=== PATIENT | female | born 1945 | race Caucasian/White ===

== ENCOUNTER 2020-08-14 13:08 | Inpatient (IN) | payer OTHER, SELFPAY ==
[~2020-08-14] VITALS: Ht 152.4 cm; Wt 70.8 kg
[2020-08-14 13:18] VITALS: BP_SYST 104
[2020-08-14] MEDS ORDERED: ONDANSETRON HCL 4 MG/2 ML VIAL IVP ONE (14:15)
[2020-08-14] MEDS ORDERED: NACL 0.9% 1,000 ML IV ONE (14:15)
[2020-08-14 14:28] LABS: BASOPHILS % (AUTO) 0.3 % (0.0-2.0); EOSINOPHILS % (AUTO) 0.1 % (0.0-4.0); HEMATOCRIT 49.9 % (36-48); HEMOGLOBIN 16.6 g/dL (12.0-16.0); LYMPHOCYTES # (AUTO) 1.3 K/uL (1.0-5.5); LYMPHOCYTES % (AUTO) 12.5 % (20.5-51.5); MEAN CORPUSCULAR HEMOGLOBIN 28 pg (27-31); MEAN CORPUSCULAR HGB CONC 33 % (32-36); MEAN CORPUSCULAR VOLUME 84 fL (79.0-98.0); MONOCYTES # (AUTO) 0.8 K/uL (0.0-1.0); MONOCYTES % (AUTO) 7.1 % (1.7-9.3); NEUTROPHILS # (AUTO) 8.6 K/uL (1.8-7.7); PLATELET COUNT (AUTO) 317 K/uL (130-430); RED BLOOD CELL COUNT(AUTO) 5.94 MIL/uL (4.2-6.2); RED CELL DISTRIBUTION WIDTH 18.1 % (9.0-15.0); WHITE BLOOD COUNT (AUTO) 10.8 K/uL (4.8-10.8)
[2020-08-14 14:49] LABS: ANION GAP 15 (5-15); CALCIUM 9.2 mg/dL (8.4-11.0); CHLORIDE 101 mmol/L (98-107); CREATININE 1.21 mg/dL (0.55-1.30); GLUCOSE 155 mg/dL (70-99); INR 1.2 (0.8-1.2); PROTHROMBIN TIME 12.2 SECS (9.5-12.5); SODIUM SERUM 135 mmol/L (136-145); UREA NITROGEN, BLOOD 21 mg/dL (8-21)
[2020-08-14 14:52] LABS: POTASSIUM 2.7 mmol/L (3.5-5.1)
[2020-08-14 14:57] LABS: ALANINE AMINOTRANSFERASE 15 U/L (12-78); ALBUMIN 1.9 g/dL (3.4-4.8); ASPARTATE AMINOTRANSFERASE 15 U/L (10-37); LACTATE DEHYDROGENASE 137 U/L (81-234); LIPASE 50 U/L (73-393); TOTAL BILIRUBIN 0.6 mg/dL (0.0-1.0)
[2020-08-14 15:25] LABS: C-REACTIVE PROTEIN QUANT 26.7 mg/dL (0-0.5)
[2020-08-14] MEDS ORDERED: KCL 40 mEq in 100 mL (PREMIX) 100 ML IV ONE (15:30)
[2020-08-14] MEDS ORDERED: ONDANSETRON HCL 4 MG/2 ML VIAL IVP PRN (15:45)
[2020-08-14] MEDS ORDERED: ACETAMINOPHEN 325 MG TABLET PO PRN (15:45)
[2020-08-14] MEDS ORDERED: METOCLOPRAMIDE HCL 10 MG/2 ML VIAL IVP PRN (15:45)
[2020-08-14] MEDS ORDERED: MORPHINE 4 MG INJ. 4 MG/ML VIAL IVP PRN (15:45)
[2020-08-14] MEDS ORDERED: ONDA4TAB5 PO (15:55)
[2020-08-14] MEDS ORDERED: METO25TA3 PO (15:55)
[2020-08-14] MEDS ORDERED: GLIM1TAB PO (15:55)
[2020-08-14] MEDS ORDERED: LIP40 PO (15:55)
[2020-08-14] MEDS ORDERED: SEMA1PEN3 SQ (15:55)
[2020-08-14] MEDS: NACL 0.9% 1,000 ML IV SCH (16:34)
[2020-08-14 17:33] VITALS: BP_SYST 123
[2020-08-14 17:41] LABS: BILIRUBIN,URINE 2+ (NEGATIVE); BLOOD, URINE NEGATIVE (NEGATIVE); COLOR,URINE YELLOW (YELLOW); GLUCOSE,URINE NEGATIVE (NEGATIVE); KETONES,URINE 1+ (NEGATIVE); LEUKOCYTE ESTERASE ,URINE NEGATIVE (NEGATIVE); NITRITE, URINE NEGATIVE (NEGATIVE); PH,URINE 6.5 (5.0-8.0); PROTEIN URINE 1+ (NEGATIVE); UROBILINOGEN,URINE 0.2 (0.2-1.0)
[2020-08-14 17:51] LABS: CLARITY/URINE SLIGHTLY HAZY (CLEAR)
[2020-08-14 18:18] LABS: RBC,URINE NONE SEEN /HPF (0-3); WBC,URINE 0-3 /HPF (0-3)
[2020-08-14 18:19] LABS: BACTERIA,URINE FEW /HPF (None Seen); CALCIUM OXALATE CRYSTALS,UR 0-10 /HPF (None Seen); FINE GRANULAR CASTS,URINE 0-10 /LPF (None Seen); MUCUS,URINE None Seen /LPF (None Seen)
[2020-08-14 20:00] VITALS: BP_SYST 122
[2020-08-14 20:46] LABS: ANION GAP 11 (5-15); CALCIUM 8.1 mg/dL (8.4-11.0); CHLORIDE 107 mmol/L (98-107); CREATININE 0.93 mg/dL (0.55-1.30); GLUCOSE 124 mg/dL (70-99); SODIUM SERUM 138 mmol/L (136-145); UREA NITROGEN, BLOOD 18 mg/dL (8-21)
[2020-08-14 20:59] LABS: POTASSIUM 2.8 mmol/L (3.5-5.1)
[2020-08-14 21:02] LABS: THYROID STIMULATING HORMONE 2.08 uIu/mL (0.34-4.82)
[2020-08-14] MEDS ORDERED: POTASSIUM CHLORIDE 20 MEQ TAB.PRT.SR PO ONE (21:15)
[2020-08-15 00:39] VITALS: BP_SYST 115
[2020-08-15] MEDS: NACL 0.9% 1,000 ML IV SCH ×3 (01:45→20:16)
[2020-08-15 03:13] LABS: BASOPHILS # (AUTO) 0.1 K/uL (0.0-0.2); BASOPHILS % (AUTO) 0.5 % (0.0-2.0); EOSINOPHILS % (AUTO) 0.2 % (0.0-4.0); HEMATOCRIT 43.5 % (36-48); HEMOGLOBIN 14.3 g/dL (12.0-16.0); LYMPHOCYTES # (AUTO) 0.9 K/uL (1.0-5.5); LYMPHOCYTES % (AUTO) 7.9 % (20.5-51.5); MEAN CORPUSCULAR HEMOGLOBIN 28 pg (27-31); MEAN CORPUSCULAR HGB CONC 33 % (32-36); MEAN CORPUSCULAR VOLUME 84 fL (79.0-98.0); MONOCYTES # (AUTO) 0.9 K/uL (0.0-1.0); MONOCYTES % (AUTO) 7.7 % (1.7-9.3); NEUTROPHILS # (AUTO) 9.5 K/uL (1.8-7.7); NEUTROPHILS % (AUTO) 83.7 % (40.0-70.0); PLATELET COUNT (AUTO) 284 K/uL (130-430); RED BLOOD CELL COUNT(AUTO) 5.16 MIL/uL (4.2-6.2); RED CELL DISTRIBUTION WIDTH 18.1 % (9.0-15.0); WHITE BLOOD COUNT (AUTO) 11.4 K/uL (4.8-10.8)
[2020-08-15 03:33] LABS: SODIUM SERUM 138 mmol/L (136-145)
[2020-08-15 03:35] LABS: POTASSIUM 2.9 mmol/L (3.5-5.1)
[2020-08-15 03:36] LABS: ANION GAP 8 (5-15); CALCIUM 7.8 mg/dL (8.4-11.0); CHLORIDE 107 mmol/L (98-107); GLUCOSE 124 mg/dL (70-99)
[2020-08-15 03:37] LABS: ALANINE AMINOTRANSFERASE 13 U/L (12-78); ALBUMIN 1.5 g/dL (3.4-4.8); ASPARTATE AMINOTRANSFERASE 13 U/L (10-37); CREATININE 0.91 mg/dL (0.55-1.30); TOTAL BILIRUBIN 0.6 mg/dL (0.0-1.0); UREA NITROGEN, BLOOD 17 mg/dL (8-21)
[2020-08-15] MEDS ORDERED: POTASSIUM CHLORIDE 20 MEQ TAB.PRT.SR PO ONE ×2 (04:30→08:45)
[2020-08-15] MEDS ORDERED: POTASSIUM CHLORIDE 20 MEQ TAB.PRT.SR ONE (05:35)
[2020-08-15 08:00] VITALS: BP_SYST 118
[2020-08-15] MEDS ORDERED: POTASSIUM CHLORIDE 60 MEQ in NS 500 ML IV SCH (08:45)
[2020-08-15] MEDS ORDERED: POTASSIUM CHLORIDE IV ONE (10:15)
[2020-08-15] MEDS ORDERED: DICYCLOMINE HCL 10 MG CAPSULE PO ONE (10:15)
[2020-08-15] MEDS ORDERED: LIDOCAINE JECT IV ONE (10:15)
[2020-08-15] MEDS ORDERED: NACL 0.9% IV ONE (10:15)
[2020-08-15 11:39] VITALS: BP_SYST 124
[2020-08-15 12:00] VITALS: BP_SYST 119
[2020-08-15] MEDS: MORPHINE 2 MG/ML INJ. SYRINGE IVP PRN ×2 (13:15→23:01)
[2020-08-15 16:00] VITALS: BP_SYST 113
[2020-08-15 20:00] VITALS: BP_SYST 124
[2020-08-15] MEDS: DICYCLOMINE HCL 10 MG CAPSULE PO SCH (20:11)
[2020-08-16 00:55] VITALS: BP_SYST 132
[2020-08-16] MEDS ORDERED: LOPERAMIDE HCL 2 MG CAPSULE ONE (09:10)
[2020-08-16] MEDS: DICYCLOMINE HCL 10 MG CAPSULE PO SCH ×2 (09:13→21:00)
[2020-08-16] MEDS: NACL 0.9% 1,000 ML IV SCH ×2 (09:14→19:17)
[2020-08-16 09:28] VITALS: BP_SYST 135
[2020-08-16] MEDS: LOPERAMIDE HCL 2 MG CAPSULE PO PRN ×2 (09:56→14:54)
[2020-08-16 11:28] VITALS: BP_SYST 129
[2020-08-16] MEDS ORDERED: COMMUNICATION ORDER XX ONE (16:45)
[2020-08-16 16:57] VITALS: BP_SYST 113
[2020-08-16] MEDS ORDERED: POLYETHYLENE GLYCOL 3350, 17 GM/ POWD.PACK PO ONE (18:00)
[2020-08-16] MEDS ORDERED: BISACODYL 5 MG TABLET.DR (DULCOLAX) PO ONE (18:00)
[2020-08-16 20:51] VITALS: BP_SYST 142
[2020-08-17 01:05] VITALS: BP_SYST 107
[2020-08-17] MEDS ORDERED: POLYETHYLENE GLYCOL 3350, 17 GM/ POWD.PACK PO ONE (03:00)
[2020-08-17] MEDS: NACL 0.9% 1,000 ML IV SCH ×3 (05:42→18:43)
[2020-08-17 06:49] LABS: BASOPHILS % (AUTO) 0.2 % (0.0-2.0); EOSINOPHILS # (AUTO) 0.1 K/uL (0.0-0.4); EOSINOPHILS % (AUTO) 0.5 % (0.0-4.0); HEMATOCRIT 45.8 % (36-48); HEMOGLOBIN 14.8 g/dL (12.0-16.0); LYMPHOCYTES # (AUTO) 1.1 K/uL (1.0-5.5); LYMPHOCYTES % (AUTO) 11.3 % (20.5-51.5); MEAN CORPUSCULAR HEMOGLOBIN 27 pg (27-31); MEAN CORPUSCULAR HGB CONC 32 % (32-36); MEAN CORPUSCULAR VOLUME 85 fL (79.0-98.0); MONOCYTES # (AUTO) 0.7 K/uL (0.0-1.0); MONOCYTES % (AUTO) 6.8 % (1.7-9.3); NEUTROPHILS # (AUTO) 8.2 K/uL (1.8-7.7); NEUTROPHILS % (AUTO) 81.2 % (40.0-70.0); PLATELET COUNT (AUTO) 199 K/uL (130-430); RED BLOOD CELL COUNT(AUTO) 5.38 MIL/uL (4.2-6.2); RED CELL DISTRIBUTION WIDTH 18.5 % (9.0-15.0)
[2020-08-17 07:10] LABS: ALANINE AMINOTRANSFERASE 15 U/L (12-78); ALBUMIN 1.5 g/dL (3.4-4.8); ANION GAP 12 (5-15); ASPARTATE AMINOTRANSFERASE 20 U/L (10-37); CHLORIDE 111 mmol/L (98-107); GLUCOSE 83 mg/dL (70-99); POTASSIUM 3.7 mmol/L (3.5-5.1); SODIUM SERUM 141 mmol/L (136-145); TOTAL BILIRUBIN 0.4 mg/dL (0.0-1.0); UREA NITROGEN, BLOOD 8 mg/dL (8-21)
[2020-08-17] MEDS ORDERED: fentaNYL CITRATE/PF 100 MCG/2 ML AMP ONE (07:17)
[2020-08-17] MEDS ORDERED: MIDAZOLAM HCL 5 MG/5 ML VIAL ONE (07:17)
[2020-08-17] MEDS ORDERED: BENZOCAINE 20% 0.5mL UD SPRAY MM ONE (07:17)
[2020-08-17] MEDS ORDERED: SIMETHICONE 40 MG/0.6 ML ML ONE (07:23)
[2020-08-17 08:00] VITALS: BP_SYST 138
[2020-08-17] MEDS: DICYCLOMINE HCL 10 MG CAPSULE PO SCH ×2 (08:29→20:59)
[2020-08-17] MEDS ORDERED: FLUCONAZOLE 200 MG TABLET (DIFLUCAN) PO ONE (09:30)
[2020-08-17] MEDS: CIPROFLOXACIN HCL 500 MG TABLET PO SCH ×2 (10:00→20:59)
[2020-08-17 11:51] VITALS: BP_SYST 129
[2020-08-17] MEDS: metroNIDAZOLE 500 MG TABLET PO SCH ×2 (14:14→20:59)
[2020-08-17 15:26] VITALS: BP_SYST 139
[2020-08-17 20:00] VITALS: BP_SYST 147
[2020-08-18 00:28] VITALS: BP_SYST 127
[2020-08-18] MEDS: NACL 0.9% 1,000 ML IV SCH ×2 (04:44→21:26)
[2020-08-18] MEDS: metroNIDAZOLE 500 MG TABLET PO SCH ×3 (05:11→21:26)
[2020-08-18 08:00] VITALS: BP_SYST 106
[2020-08-18] MEDS: FLUCONAZOLE 200 MG TABLET (DIFLUCAN) PO SCH (08:59)
[2020-08-18] MEDS: DICYCLOMINE HCL 10 MG CAPSULE PO SCH ×2 (08:59→21:26)
[2020-08-18 10:18] LABS: BASOPHILS % (AUTO) 0.1 % (0.0-2.0); EOSINOPHILS # (AUTO) 0.1 K/uL (0.0-0.4); EOSINOPHILS % (AUTO) 0.5 % (0.0-4.0); HEMATOCRIT 42.1 % (36-48); HEMOGLOBIN 13.4 g/dL (12.0-16.0); LYMPHOCYTES % (AUTO) 8.3 % (20.5-51.5); MEAN CORPUSCULAR HEMOGLOBIN 27 pg (27-31); MEAN CORPUSCULAR HGB CONC 32 % (32-36); MEAN CORPUSCULAR VOLUME 85 fL (79.0-98.0); MONOCYTES # (AUTO) 0.6 K/uL (0.0-1.0); NEUTROPHILS # (AUTO) 10.7 K/uL (1.8-7.7); NEUTROPHILS % (AUTO) 86.1 % (40.0-70.0); PLATELET COUNT (AUTO) 206 K/uL (130-430); RED BLOOD CELL COUNT(AUTO) 4.98 MIL/uL (4.2-6.2); RED CELL DISTRIBUTION WIDTH 18.8 % (9.0-15.0); WHITE BLOOD COUNT (AUTO) 12.4 K/uL (4.8-10.8)
[2020-08-18 10:21] LABS: ANION GAP 11 (5-15); CHLORIDE 113 mmol/L (98-107); CREATININE 0.77 mg/dL (0.55-1.30); GLUCOSE 96 mg/dL (70-99); SODIUM SERUM 141 mmol/L (136-145); UREA NITROGEN, BLOOD 6 mg/dL (8-21)
[2020-08-18 10:49] LABS: POTASSIUM 2.6 mmol/L (3.5-5.1)
[2020-08-18] MEDS ORDERED: POTASSIUM CHLORIDE 40 MEQ in NS 250 ML IV ONE (11:00)
[2020-08-18 11:09] LABS: ERYTHROCYTE SEDIMENTATION RATE 4 MM/HR (0-20)
[2020-08-18 11:33] VITALS: BP_SYST 119
[2020-08-18 11:37] LABS: C-REACTIVE PROTEIN QUANT 13.8 mg/dL (0-0.5)
[2020-08-18] MEDS: CIPROFLOXACIN HCL 500 MG TABLET PO SCH ×2 (11:43→21:26)
[2020-08-18] MEDS ORDERED: COMMUNICATION ORDER XX ONE (12:00)
[2020-08-18] MEDS ORDERED: POTASSIUM CHLORIDE 40 MEQ, LIDOCAINE JECT 2% PF 100 MG 50 MG in NS 250 ML IV ONE (12:00)
[2020-08-18 16:04] VITALS: BP_SYST 115
[2020-08-18 20:00] VITALS: BP_SYST 142
[2020-08-19 00:31] VITALS: BP_SYST 124
[2020-08-19] MEDS: NACL 0.9% 1,000 ML IV SCH ×2 (05:45→09:39)
[2020-08-19] MEDS: metroNIDAZOLE 500 MG TABLET PO SCH ×2 (05:57→14:22)
[2020-08-19 08:20] LABS: BASOPHILS # (AUTO) 0.1 K/uL (0.0-0.2); BASOPHILS % (AUTO) 0.5 % (0.0-2.0); EOSINOPHILS # (AUTO) 0.1 K/uL (0.0-0.4); EOSINOPHILS % (AUTO) 0.4 % (0.0-4.0); HEMATOCRIT 45.5 % (36-48); HEMOGLOBIN 14.5 g/dL (12.0-16.0); LYMPHOCYTES # (AUTO) 0.9 K/uL (1.0-5.5); LYMPHOCYTES % (AUTO) 7.1 % (20.5-51.5); MEAN CORPUSCULAR HEMOGLOBIN 27 pg (27-31); MEAN CORPUSCULAR HGB CONC 32 % (32-36); MEAN CORPUSCULAR VOLUME 85 fL (79.0-98.0); MONOCYTES # (AUTO) 0.6 K/uL (0.0-1.0); MONOCYTES % (AUTO) 4.9 % (1.7-9.3); NEUTROPHILS # (AUTO) 10.6 K/uL (1.8-7.7); NEUTROPHILS % (AUTO) 87.1 % (40.0-70.0); PLATELET COUNT (AUTO) 198 K/uL (130-430); RED BLOOD CELL COUNT(AUTO) 5.35 MIL/uL (4.2-6.2); RED CELL DISTRIBUTION WIDTH 18.9 % (9.0-15.0); WHITE BLOOD COUNT (AUTO) 12.1 K/uL (4.8-10.8)
[2020-08-19 08:41] LABS: ALANINE AMINOTRANSFERASE 18 U/L (12-78); ALBUMIN 1.5 g/dL (3.4-4.8); ANION GAP 5 (5-15); ASPARTATE AMINOTRANSFERASE 19 U/L (10-37); CALCIUM 7.4 mg/dL (8.4-11.0); CHLORIDE 112 mmol/L (98-107); CREATININE 0.95 mg/dL (0.55-1.30); GLUCOSE 122 mg/dL (70-99); POTASSIUM 3.8 mmol/L (3.5-5.1); SODIUM SERUM 140 mmol/L (136-145); TOTAL BILIRUBIN 0.7 mg/dL (0.0-1.0); UREA NITROGEN, BLOOD 6 mg/dL (8-21)
[2020-08-19 08:49] LABS: C-REACTIVE PROTEIN QUANT 13.2 mg/dL (0-0.5)
[2020-08-19] MEDS: FLUCONAZOLE 200 MG TABLET (DIFLUCAN) PO SCH (09:17)
[2020-08-19] MEDS: CIPROFLOXACIN HCL 500 MG TABLET PO SCH (09:17)
[2020-08-19] MEDS: DICYCLOMINE HCL 10 MG CAPSULE PO SCH (09:17)
[2020-08-19 09:56] LABS: ERYTHROCYTE SEDIMENTATION RATE 5 MM/HR (0-20)
[2020-08-19 11:33] VITALS: BP_SYST 130
[2020-08-19] MEDS ORDERED: LEVO750T45 PO (15:23)
[2020-08-19] MEDS ORDERED: METR500T PO (15:23)
[2020-08-19] MEDS ORDERED: DIF100 PO (15:24)
[2020-08-19] MEDS ORDERED: OMEP20CA15 PO (15:25)
[2020-08-19 16:34] VITALS: BP_SYST 132
[2020-08-19 17:19] VITALS: BP_SYST 132
[2020-08-19 17:46] VITALS: BP_SYST 134
== END 2020-08-19 18:17 | disposition home health service (06) | DRG 393 ==
LOC: SED 13:08 → OBSVTOIN 15:43 → INTOOBSV 15:43 → STU 15:43 → OBSVTOIN 08-16 10:06 → SMU 08-18 11:00
PROVIDERS: ADMIT Internal Medicine Hospice and Palliative Medicine; ATTEND Internal Medicine Hospice and Palliative Medicine
PROC: 0DBE8ZX Excision of Large Intestine, Via Natural or Artificial Opening Endoscopic, Diagnostic (ICD-10-PCS; 2020-08-17)
PROC: 0DB98ZX Excision of Duodenum, Via Natural or Artificial Opening Endoscopic, Diagnostic (ICD-10-PCS; principal; 2020-08-17 08:00)
PROC: 0DB78ZX Excision of Stomach, Pylorus, Via Natural or Artificial Opening Endoscopic, Diagnostic (ICD-10-PCS; 2020-08-17 08:00)
DX: K64.8 Other hemorrhoids (principal); E43 Unspecified severe protein-calorie malnutrition; B37.81 Candidal esophagitis; C64.9 Malignant neoplasm of unspecified kidney, except renal pelvis; K52.9 Noninfective gastroenteritis and colitis, unspecified; K26.9 Duodenal ulcer, unspecified as acute or chronic, without hemorrhage or perforation; K29.80 Duodenitis without bleeding; K29.70 Gastritis, unspecified, without bleeding; E83.52 Hypercalcemia; E88.09 Other disorders of plasma-protein metabolism, not elsewhere classified; E87.6 Hypokalemia; Z20.822 Contact with and (suspected) exposure to COVID-19; E11.9 Type 2 diabetes mellitus without complications; Z88.6 Allergy status to analgesic agent; Z88.5 Allergy status to narcotic agent; Z88.0 Allergy status to penicillin; Z79.899 Other long term (current) drug therapy; Z85.528 Personal history of other malignant neoplasm of kidney; Z85.3 Personal history of malignant neoplasm of breast; Z90.49 Acquired absence of other specified parts of digestive tract; Z68.30 Body mass index [BMI] 30.0-30.9, adult; Z92.21 Personal history of antineoplastic chemotherapy
CPT/HCPCS: 36415; 43239; 45380; 71045; 80048; 80053; 81000; 82550; 83605; 83615; 83690; 83735; 83880; 84132; 84443; 84484; 85025; 85610-TC; 85651-TC; 85730-TC; 86140; 86886; 86900; 86901; 87040-TC; 87045-TC; 87046; 87081; 87086; 87177; 87230-TC; 88305; 88312; 88313; 89055; 93005; 96361; 96365; 96375; 97112-GP; 97163-GP; 97530-GP; 99285; G0378; J2250; J2270; J2405; J2765; J3010; J3480; J7030; J7040; J7050

== ENCOUNTER 2020-08-27 10:07 | Inpatient (IN) | payer OTHER, SELFPAY ==
[~2020-08-27] VITALS: Ht 152.4 cm; Wt 72.6 kg
[~2020-08-27 10:07] MED LIST: DIF100 PO; LEVO750T45 PO; LIP40 PO; METO25TA3 PO; METR500T PO; OMEP20CA15 PO; ONDA4TAB5 PO; SEMA1PEN3 SQ
--- NOTE | 2020-08-27 10:27 | NUR ---
Patient to ER bed 2 to gown for evaluation. Side rails up. Report given to Ashley VALDEZ
[2020-08-27 10:30] VITALS: BP_SYST 115
--- NOTE | 2020-08-27 10:40 | NUR ---
pt bib her daughter from home for increasing gen weak. Per the pt's daughter the pt is too weak to ambulate and take care of her self. The pt has an extensive hx of CA and is on immunotherapy. Pt is currently AAOx3. Port-a-cath to the right upper chest
[2020-08-27] MEDS ORDERED: NACL 0.9% 1,000 ML IV ONE (10:45)
--- NOTE | 2020-08-27 10:45 | NUR ---
ER at bedside examining patient.
[2020-08-27 11:03] LABS: BASOPHILS % (AUTO) 0.2 % (0.0-2.0); EOSINOPHILS # (AUTO) 0.1 K/uL (0.0-0.4); EOSINOPHILS % (AUTO) 0.4 % (0.0-4.0); HEMATOCRIT 42.1 % (36-48); HEMOGLOBIN 14.2 g/dL (12.0-16.0); LYMPHOCYTES # (AUTO) 1.3 K/uL (1.0-5.5); LYMPHOCYTES % (AUTO) 6.8 % (20.5-51.5); MEAN CORPUSCULAR HEMOGLOBIN 28 pg (27-31); MEAN CORPUSCULAR HGB CONC 34 % (32-36); MEAN CORPUSCULAR VOLUME 83 fL (79.0-98.0); MONOCYTES # (AUTO) 0.5 K/uL (0.0-1.0); MONOCYTES % (AUTO) 2.8 % (1.7-9.3); NEUTROPHILS # (AUTO) 16.8 K/uL (1.8-7.7); NEUTROPHILS % (AUTO) 89.8 % (40.0-70.0); PLATELET COUNT (AUTO) 274 K/uL (130-430); RED BLOOD CELL COUNT(AUTO) 5.06 MIL/uL (4.2-6.2); RED CELL DISTRIBUTION WIDTH 17.7 % (9.0-15.0); WHITE BLOOD COUNT (AUTO) 18.6 K/uL (4.8-10.8)
[2020-08-27] MEDS ORDERED: ONDANSETRON HCL 4 MG/2 ML VIAL IVP ONE (11:15)
[2020-08-27 11:18] LABS: ANION GAP 11 (5-15); CALCIUM 7.2 mg/dL (8.4-11.0); CHLORIDE 100 mmol/L (98-107); GLUCOSE 138 mg/dL (70-99); SODIUM SERUM 141 mmol/L (136-145); UREA NITROGEN, BLOOD 19 mg/dL (8-21)
[2020-08-27 11:20] LABS: ALANINE AMINOTRANSFERASE 13 U/L (12-78); ASPARTATE AMINOTRANSFERASE 27 U/L (10-37); LIPASE 314 U/L (73-393); PHOSPHORUS 3.1 mg/dL (2.7-4.5); TOTAL BILIRUBIN 0.7 mg/dL (0.0-1.0)
--- NOTE | 2020-08-27 11:20 | NUR ---
PORT-A-CATH ACCESSED. CURRENTLY INFUSING NS 1 LITER PER MD ORDER
[2020-08-27] MEDS ORDERED: KCL 20 mEq in D5/0.45NS 1000mL 1,000 ML IV ONE (11:45)
[2020-08-27] MEDS ORDERED: POTASSIUM CHLORIDE 20 MEQ/PKT PACKET PO ONE (11:45)
--- NOTE | 2020-08-27 12:31 | NUR ---
rapid cpvid and mrsa swabs collected and sent to lab
[2020-08-27] MEDS ORDERED: ONDANSETRON HCL 4 MG/2 ML VIAL IVP PRN (13:00)
[2020-08-27] MEDS ORDERED: METOCLOPRAMIDE HCL 10 MG/2 ML VIAL IVP PRN (13:00)
[2020-08-27] MEDS ORDERED: POTASSIUM CHLORIDE 40 MEQ in NS 250 ML IV ONE ×2 (13:00→18:45)
[2020-08-27] MEDS ORDERED: ACETAMINOPHEN 325 MG TABLET PO PRN (13:00)
--- NOTE | 2020-08-27 14:15 | NUR ---
PT REFUSED PAIN MED
--- NOTE | 2020-08-27 14:30 | NUR ---
PER PT'S DAUGHTER THE PATIENT IS A DNI
[2020-08-27] MEDS ORDERED: MORPHINE 4 MG INJ. 4 MG/ML VIAL IVP ONE (15:00)
--- NOTE | 2020-08-27 15:20 | NUR ---
Patient will be admitted to care of DR. FRANCISCO. Admitted to TELE unit. Will go to room 116-A. Belongings list completed. Complete and up to date summary report printed. SBAR report to be given at bedside with opportunity for questions.
--- NOTE | 2020-08-27 15:30 | NUR ---
PATIENT CAME FROM ER [facility]IA [facility] AAOX 4. HAS PORT CATH ON THE RIGHT UPPER CHEST WITH D5/12NS WITH 40 KCL AT 100CC/HR INFUSING ON WELL. ADMISSION ASSESSMENT DONE. CALL LIGHTS WITHIN REACH. BED LOW POSITION, ALARMED AND LOCKED. HAS BRUISES/ABRASIONS ON LEFT ELBOW, DUE TO FALL PER DAUGHTER SAID. HAS ERYTHEMA ON THE LEFT BUTTOCKS DRY/INTACT AND RT FOOT REDNESS. PHOTOS TAKEN AT THIS TIME. ENDORSED TO INCOMING NURSE.
[2020-08-27 16:04] VITALS: BP_SYST 109
--- NOTE | 2020-08-27 16:06 | NUR ---
ATTENDING MD DR FRANCISCO WAS CALLED, ER: DIET ORDER. SPOKE TO TAMI.
--- NOTE | 2020-08-27 16:58 | NUR ---
[facility] TO REACH OUT TO FAMILY FOR HOSPICE EVAL APPT
--- NOTE | 2020-08-27 18:00 | NUR ---
CALLED DR ABDI FOR POTASSIUM LEVEL OF 2.8 CALCIUM LEVEL 6.7. AWAITING TO CALL BACK
[2020-08-27 18:05] LABS: ANION GAP 7 (5-15); CHLORIDE 104 mmol/L (98-107); CREATININE 1.33 mg/dL (0.55-1.30); GLUCOSE 146 mg/dL (70-99); SODIUM SERUM 142 mmol/L (136-145); UREA NITROGEN, BLOOD 18 mg/dL (8-21)
[2020-08-27 18:12] LABS: CALCIUM 6.7 mg/dL (8.4-11.0); POTASSIUM 2.8 mmol/L (3.5-5.1)
--- NOTE | 2020-08-27 18:20 | NUR ---
DR ABDI ORDERED POTASSIUM RIDER OF 40 MEQ. IN NORMAL SALINE 250 ML. BAG.
[2020-08-27] MEDS: D5NS 1,000 ML IV SCH (18:37)
--- NOTE | 2020-08-27 19:28 | NUR ---
ENDORSED TO INCOMING NURSE MARY ANNE VALDEZ
--- NOTE | 2020-08-27 19:30 | NUR ---
OPENING NOTES RECEIVED REPORT FROM DAY SHIFT RN. PT RESTING IN BED, ALERT & ORIENTED X4. BREATHING EVEN AND UNLABORED TO ROOM AIR. O2 SAT 94%. NO SIGNS OF RESPIRATORY DISTRESS NOTED. RIGHT UPPER CHEST PORT A CATH CLEAN, DRY, AND INTACT. IVF RUNNING ORDERED RATE. PT DENIES ANY PAIN AT THIS TIME. NO S/S OF ACUTE DISTRESS NOTED. CALL LIGHT WITHIN REACH. DAUGHTER AT THE BEDSIDE. BED ALARM ON, LOCKED IN LOWEST POSITION. SIDE RAILS UPX3. SAFETY AND FALL PRECAUTIONS ARE IN PLACE. WILL CONTINUE TO MONITOR.
[2020-08-27 20:00] VITALS: BP_SYST 100
[2020-08-28 00:55] VITALS: BP_SYST 111
--- NOTE | 2020-08-28 06:32 | NUR ---
CLOSING NOTES PT SLEEPING. CHEST RISE AND FALL SYMMETRICAL. BREATHING EVEN AND UNLABORED TO ROOM AIR. NO SIGNS OF RESPIRATORY DISTRESS NOTED. RIGHT UPPER CHEST PORT A CATH CLEAN, DRY, AND INTACT. IVF RUNNING ORDERED RATE. NO S/S OF ACUTE DISTRESS NOTED. CALL LIGHT WITHIN REACH. DAUGHTER AT THE BEDSIDE. BED ALARM ON, LOCKED IN LOWEST POSITION. SIDE RAILS UPX3. SAFETY AND FALL PRECAUTIONS ARE IN PLACE. ALL NEEDS ARE MET THROUGHOUT SHIFT. WILL CONTINUE TO MONITOR UNTIL ENDORSE TO DAY SHIFT RN.
--- NOTE | 2020-08-28 06:44 | NUR ---
Nutrition Update Ash Scale 16 noted. Pt admitted for Generalized weakness Diet: Full liquid BMI: 29.3 kg/m2 RD to follow per nutrition care standards.
[2020-08-28 08:00] VITALS: BP_SYST 101
--- NOTE | 2020-08-28 08:26 | NUR ---
OPENING NOTES AWAKE, ALERT AND ORIENTED. DENIES ANY PAIN. NO SHORTNESS OF BREATH ON ROOM AIR. IV FLUIDS INFUSING WELL VIA PORT-A-CATH ON RIGHT CHEST. FALL AND SAFETY CHECKS DONE. CALL LIGHT WITHIN REACH. WILL MONITOR.
[2020-08-28] MEDS: D5NS 1,000 ML IV SCH ×2 (08:42→17:12)
[2020-08-28 11:57] LABS: ANION GAP 9 (5-15); CHLORIDE 106 mmol/L (98-107); CREATININE 1.13 mg/dL (0.55-1.30); GLUCOSE 208 mg/dL (70-99); SODIUM SERUM 144 mmol/L (136-145); UREA NITROGEN, BLOOD 16 mg/dL (8-21)
[2020-08-28 12:01] LABS: CALCIUM 6.4 mg/dL (8.4-11.0); POTASSIUM 2.4 mmol/L (3.5-5.1)
--- NOTE | 2020-08-28 12:04 | NUR ---
SS notes BREAKER UP received a hospice evaluation order from Dr. Bacon for [facility]. BREAKER UP spoke to Pearl from [facility], fax, . BREAKER UP let Pearl know she will fax over the packet wesley. BREAKER UP later leaned that the family agreed to Hospice services w/[facility]. BREAKER UP will remain available as needed.
--- NOTE | 2020-08-28 12:05 | NUR ---
HIGH ALERT NOTE: was still in the hospital making rounds.
[2020-08-28 12:08] VITALS: BP_SYST 104
--- NOTE | 2020-08-28 12:09 | NUR ---
Dietitian Recommendations *Recommend: Continue Full liquid diet. ONS comes standard w/ diet and provides 1050 kcal, 60gm protein daily. *Advance diet when medically appropriate. Please see Nutritional Assessment for details PEYMAN RODRÍGUEZ
[2020-08-28] MEDS ORDERED: POTASSIUM CHLORIDE 20 MEQ TAB.PRT.SR PO ONE (12:30)
[2020-08-28] MEDS ORDERED: COMMUNICATION ORDER XX ONE (12:30)
--- NOTE | 2020-08-28 12:37 | NUR ---
PT WILL DC HOME WITH [facility] VIA [facility] 1 AUTH [id number]. ARRANGEMENTS TO BE MADE BY [facility]
[2020-08-28] MEDS ORDERED: POTASSIUM CHLORIDE 60 MEQ in NS 500 ML IV ONE (13:30)
[2020-08-28 15:58] VITALS: BP_SYST 117
--- NOTE | 2020-08-28 18:52 | NUR ---
CLOSING NOTES AWAKE, ALERT AND ORIENTED. DENIES ANY PAIN. NO SHORTNESS OF BREATH ON ROOM AIR. IV FLUIDS AND IV POTASSIUM INFUSING WELL VIA PORT-A-CATH ON RIGHT CHEST. FALL AND SAFETY CHECKS DONE. CALL LIGHT WITHIN REACH. WILL ENDORSE TO NIGHT NURSE.
--- NOTE | 2020-08-28 19:30 | NUR ---
Opening note Received SBAR report from COURTNEY Fernandez. Patient is resting in bed, no distress, non labored breathing on room air. Safety precautions in place and call light w/in reach. daughter is at bedside.
[2020-08-28 20:20] VITALS: BP_SYST 110
--- NOTE | 2020-08-28 20:57 | NUR ---
S/W Dr. Hernandez Informed patient is reporting severe pain 08/17 and only has Tylenol for mild pain. She said she will enter medication orders
[2020-08-28] MEDS ORDERED: traMADol HCL HCL 50 MG TABLET (ULTRAM) PO ONE (21:00)
--- NOTE | 2020-08-28 21:16 | NUR ---
Pain med Administered Ultram, reviewed side effects, she verbalized understanding. Daughter at bedside.
[2020-08-28 23:17] LABS: ANION GAP -1 (5-15); CHLORIDE 113 mmol/L (98-107); CREATININE 1.02 mg/dL (0.55-1.30); GLUCOSE 244 mg/dL (70-99); POTASSIUM 5.2 mmol/L (3.5-5.1); SODIUM SERUM 144 mmol/L (136-145); UREA NITROGEN, BLOOD 15 mg/dL (8-21)
[2020-08-28 23:22] LABS: CALCIUM 6.5 mg/dL (8.4-11.0)
--- NOTE | 2020-08-28 23:32 | NUR ---
Critical Lab - Calcium 6.4 Called and reported critical lab value of Calcium to Dr. Hernandez and she provided medication order for Calcium 1G PO once and am labs CBC, BMP; TORB.
[2020-08-28] MEDS ORDERED: CALCIUM 500 MG/TAB PO ONE ×2 (23:45)
--- NOTE | 2020-08-29 00:40 | NUR ---
Calcium tab Calcium tab given; patient swallowed with grape juice/water.
[2020-08-29 00:51] VITALS: BP_SYST 125
[2020-08-29] MEDS: D5NS 1,000 ML IV SCH (02:29)
--- NOTE | 2020-08-29 02:32 | NUR ---
IVF Hung new bag of D5NS, infusing well. Patient resting in comfortable position, no distress. Daughter at bedside.
[2020-08-29 06:27] LABS: ANION GAP 7 (5-15); CHLORIDE 114 mmol/L (98-107); CREATININE 0.86 mg/dL (0.55-1.30); GLUCOSE 160 mg/dL (70-99); POTASSIUM 4.5 mmol/L (3.5-5.1); SODIUM SERUM 146 mmol/L (136-145); UREA NITROGEN, BLOOD 13 mg/dL (8-21)
[2020-08-29 06:53] LABS: CALCIUM 6.4 mg/dL (8.4-11.0)
[2020-08-29] MEDS ORDERED: CALCIUM 500 MG/TAB PO ONE (07:15)
--- NOTE | 2020-08-29 08:00 | NUR ---
initial notes rec patient awake alert with hob elevated. ivf infusing well. no infiltration noted. denies pain. resp easy and unlabored. bed to the lowest position and side rails up and locked. call light within reached.
[2020-08-29 08:20] VITALS: BP_SYST 111
[2020-08-29 09:21] VITALS: BP_SYST 111
--- NOTE | 2020-08-30 10:00 | NUR ---
closing notes pt went home with hospice via ambulance. daughter at bedside and explained to her re med reconciliation.iv through the perma cath lu needle was removed. no bleeding noted. resp easy and unlabored. no sob noted
== END 2020-08-29 10:00 | disposition hospice, home (50) | DRG 640 ==
LOC: SED 10:07 → STU 12:48 → SMU 08-28 11:58
PROVIDERS: ADMIT Internal Medicine Hospice and Palliative Medicine; ATTEND Internal Medicine Hospice and Palliative Medicine
DX: E86.0 Dehydration (principal); E43 Unspecified severe protein-calorie malnutrition; C64.9 Malignant neoplasm of unspecified kidney, except renal pelvis; R62.7 Adult failure to thrive; E11.9 Type 2 diabetes mellitus without complications; Z20.822 Contact with and (suspected) exposure to COVID-19; E87.6 Hypokalemia; I10 Essential (primary) hypertension; Z90.5 Acquired absence of kidney; Z68.31 Body mass index [BMI] 31.0-31.9, adult; Z88.0 Allergy status to penicillin; Z88.8 Allergy status to other drugs, medicaments and biological substances; Z79.2 Long term (current) use of antibiotics; Z79.899 Other long term (current) drug therapy; Z90.11 Acquired absence of right breast and nipple
CPT/HCPCS: 36415; 71045; 80048; 80053; 83690; 83735; 84100; 84484; 85025; 87081; 93005; 96361; 96365; 96375; 99285; G0378; J2270; J2405; J3480; J7040; J7050